=== PATIENT | female | born 1980 | race Caucasian/White ===

== ENCOUNTER 2022-10-11 08:06 | Outpatient (RCR) | payer BC, SELFPAY | END 2023-03-14 23:59 | disposition home or self-care (01) | PROVIDERS: Visit Provider Family Medicine | DX: H93.12 Tinnitus, left ear (principal); H93.299 Other abnormal auditory perceptions, unspecified ear; R68.89 Other general symptoms and signs; Z51.89 Encounter for other specified aftercare | CPT/HCPCS: 97166 ==

== ENCOUNTER 2023-11-13 08:06 | Day surgery (SDC) | payer BC, SELFPAY ==
[2023-11-13] VITALS (15 sets, daily range): BP systolic 101–125; BP diastolic 62–95; PULSE 54–86; RESP 13–20; TEMP 36.3–36.6; O2SAT 93–100; BMI 32.1
[2023-11-13] MEDS: LACTATED RINGERS 1000 ML 1,000 ML 100 ML IV (08:30)
[2023-11-13 08:44] LABS: Ur HCG Qualitative* Negative (Negative)
[2023-11-13] MEDS: SODIUM CHLORIDE 0.9 % (FLUSH) 10 ML SYRINGE IVF (09:16)
--- NOTE | 2023-11-13 09:18 | W.PM.H&PU ---
History & Physical Update History & Physical Update H&P Reviewed and patient assessed: No changes noted H&P Updates: She is still not sexually active and continue to strongly desire sterilization.
[2023-11-13] MEDS: BUPIVACAINE 0.25 %/EPI 1:200K 30 ml 8 ML INJECTION (11:10)
--- NOTE | 2023-11-13 11:10 | P.PCNOB_ITS ---
Procedure Pre-op/Post-op diagnoses: Pre-Op/Post-Op Diagnoses Operation Date: 11/13/23 09:45 <No data on this case meets the specified criteria> Procedure: Procedures Operation Date: 11/13/23 09:45 Actual Procedure Side Surgeon p Diagnostic Laparoscopic Bilateral Salpingectomy, Lysis of adhesions Bilateral Chiquita Emmanuel MD Findings: Pelvic exam: Mons normal, clitoris normal, urethral meatus normal. Labia minora and majora normal in appearance bilaterally. Perineum and anus normal appearance. Vaginal introitus normal appearance. On laparoscopy: Uterus with dense appearing adhesion of the the bladder flap to the previous hysterotomy scar, otherwise normal. Sigmoid colon and fimbriated end of fallopian tube adhered to left pelvic side wall. Appendix and liver all appeared normal. Narrative: Preoperative diagnosis: Anita is a 43-year-old who desires permanent sterilization. Postoperative diagnosis: Same. Procedure: Diagnostic laparoscopy, bilateral salpingectomy, lysis of adhesions Anesthesia: General endotracheal, Local Surgeon: Chiquita Emmanuel MD health care assistant: ELIEL Payton EBL: 10 mL Urine output: 400 mL clear urine IVF: 700 ml Procedure: Patient was taken to the operating room where general anesthetic was found to be adequate. She was placed in the dorsal lithotomy position and an exam under anesthesia was performed with findings stated above. She was then prepped and draped in a normal sterile manner. A Roblero catheter was then placed. A large sponge stick was placed into the vagina to be used as a manipulator was then placed. Attention was then turned to performing the laparoscopic portion of the procedure. All incisions were injected with 0.5% Marcaine prior to incision. A vertical 5 mm infraumbilical, incision, was made and a 5 mm trocar placed under direct visualization with the laparoscope. 5 mm camera was placed within the 5 mm Fios Kii trocar, and advanced under direct visualization through the anterior abdominal wall into the peritoneal cavity, while tenting up the anterior abdominal wall. The trocar was removed. The balloon was inflated, holding the port in place. Pneumoperitoneum was achieved. Survey of the abdomen and pelvis revealed the above-noted findings. Two additional port sites were created. The first was in the patient's left lower quadrant, just superomedial to the left ASIS. The second was a hand's breath superior to and slightly medial to the first. Each was infiltrated with small amount of Marcaine prior to incision. A 5 mm incision was made at each site, after assuring that large vessels were out of harm's way. A 5 mm Fios Kii port was inserted at each site, under direct visualization and without complication. The balloon on each of the 3 ports was inflated, holding each in place. The left fallopian tube was grasped with a sliding grasper. The left fallopian tube was removed from the broad ligament using the LigaSure dissecting forceps starting at the cornua end as the plan was more readily apparent. Sequential pedicles were then formed towards the fimbriated end. Lysis of adhesion performed to free up the fimbriated end of the tube. The majority of the fimbria was removed with small amount left behind as it was too adhered to the pelvic side wall. The tube was then removed from the abdomen through the left lower quadrant port. The right fallopian tube was removed started from the fimbriated end with sequential pedicles up to the level of the cornua where it was subsequently ligated. Excellent hemostasis was noted of all pedicles. The trocars were then removed under direct visualization. The CO2 gas was allowed to escape the infraumbilical port prior to its removal. All incisions were reapproximated using 4-0 Monocryl in a running subcuticular manner. Exofin applied over each incision site. The vaginal manipulator and Roblero catheter were removed. The patient tolerated this procedure well. Sponge, lap and instrument counts were correct x2 at the end of the procedure and the patient was taken to the recovery area in stable condition.
--- NOTE | 2023-11-13 11:25 | W.ANESCHARGE ---
Anesthesia Charges Start Date/Time Anesthesia Start Date: 11/13/23 Anesthesia Start Time: 10:15 Stop Date/Time Anesthesia Stop Date: 11/13/23 Anesthesia Stop Time: 11:27
[2023-11-13] MEDS: fentaNYL 100 MCG/2 ML inj 50 MCG IVP (11:51)
--- NOTE | 2023-11-13 12:11 | W.ANESCHARGE ---
Anesthesia Charges Start Date/Time Anesthesia Start Date: 11/13/23 Anesthesia Start Time: 10:15 Stop Date/Time Anesthesia Stop Date: 11/13/23 Anesthesia Stop Time: 11:27
== END 2023-11-13 13:25 | disposition home or self-care (01) ==
PROVIDERS: Visit Provider Obstetrics & Gynecology
PROC: (CPT 58661; principal; 2023-11-13 09:30)
DX: Z30.2 Encounter for sterilization (principal)
CPT/HCPCS: 58661; 00840; 36415; 81025; 85018; 86850; 86900; 86901; 88302; J0330; J1100; J1170; J1885; J2250; J2405; J2704; J2710; J3010; J7120

== ENCOUNTER 2024-10-31 11:44 | Emergency (ER) | payer BC, SELFPAY ==
--- OUTSIDE RECORDS SUMMARY | 2024-10-31 11:46 | XMS_ITS | Clinical Summary ---
Author Organization [facility] Address [address] [place] [id number] Care Team Providers Care Data Officer Name Role Phone Hawa Goff DO Primary Care Provider [phone] Allergies Active Allergy Reactions Criticality Noted Date Comments Hailey Vomiting 07/14/2021 projectile vomiting when age 11 Medications multivitamin (MVI) tablet Take 1 Tablet by mouth once daily. 0 1 Active durable medical equipment (DME)Indications :Plantar fasciitis of right foot,Gastrocnemi us equinus, unspecified laterality [phone] Plantar fasciitis Night Splint, Medium 1 Each 2 Active medication order composer YERBA MANTA tea daily 4 Active medication order composerIndicati ons:PTSD (post-traumatic stress disorder),Medica [place] use [place] medical cannabis 4 Active Active Problems Problem Noted Date Diagnosed Date Medical cannabis use 07/14/2021 Overview (05/15/2024): [id number] PTSD PTSD (post-traumatic stress disorder) 07/14/2021 Advanced maternal age in multigravida, second tr imester 10/27/2020 09/23/2020 Overview (02/20/2021): Component Latest Ref Rng & Units 02/13/2021 Vaginal/Rectal OB Strep B PCR Positive (A) Estimated Date of Delivery: 03/14/21 Patient's last menstrual period was 06/07/2020 (exact date). Last Tdap- 12/26/2020 Last Flu vaccine- 06/16/2017 Glucose (GTT) result- Component Latest Ref Rng & Units 11/28/2020 GLUCOSE,GESTATIONAL 65 - 139 mg/dL 126 Component Latest Ref Rng & Units 12/01/2020 THC METABOLITES,QUAL Not Detected Presumptive Positive-Unconfirmed Result (A) PCP,QUAL Not Detected Not Detected COCAINE,QUAL Not Detected Not Detected METHAMPHETAMINE, QUALITATIVE Not Detected Not Detected OPIATES,QUAL Not Detected Not Detected AMPHETAMINE, QUALITATIVE Not Detected Not Detected BENZODIAZEPINES,QUAL Not Detected Not Detected TRICYCLICS,QUAL Not Detected Not Detected METHADONE, QUALITATIVE Not Detected Not Detected BARBITURATES,QUAL Not Detected Not Detected OXYCODONE, QUALITATIVE Not Detected Not Detected BUPRENORPHINE, QUALITATIVE Not Detected Not Detected PROPOXYPHENE,QUAL Not Detected Not Detected HEMOGLOBIN 12.0 - 16.0 g/dL MCV 80 - 100 fL TREPONEMA PALLIDUM Negative Component Latest Ref Rng & Units 12/26/2020 THC METABOLITES,QUAL Not Detected PCP,QUAL Not Detected COCAINE,QUAL Not Detected METHAMPHETAMINE, QUALITATIVE Not Detected OPIATES,QUAL Not Detected AMPHETAMINE, QUALITATIVE Not Detected BENZODIAZEPINES,QUAL Not Detected TRICYCLICS,QUAL Not Detected METHADONE, QUALITATIVE Not Detected BARBITURATES,QUAL Not Detected OXYCODONE, QUALITATIVE Not Detected BUPRENORPHINE, QUALITATIVE Not Detected PROPOXYPHENE,QUAL Not Detected HEMOGLOBIN 12.0 - 16.0 g/dL 11.9 (L) MCV 80 - 100 fL 91 TREPONEMA PALLIDUM Negative Negative 20 week US: Intrauterine at 20w 2d. presentation is Breech. EFW 374 grams, percentile: 66. Growth parameters and estimated weight are appropriate for gestational age. No major structural anomalies identified. No markers for aneuploidy identified. The amniotic fluid volume appears normal. Placental location: Anterior There is no evidence of placenta previa The transabdominal cervical length is 4.3 cm. No Known Allergies OB History Para Term AB Living 3 0 0 0 2 0 SAB TAB Ectopic Multiple Live Births 0 2 0 0 0 # Outcome Date GA Lbr Eldon/2nd Weight Sex Delivery Anes PTL Lv 3 Current 2 TAB 1 TAB Create lab flowsheet for OB labs- Component Latest Ref Rng & Units 09/22/2020 09/22/2020 09/22/2020 1:30 PM 1:30 PM 1:30 PM ANTIBODY SCREEN Negative Negative SPECIMEN EXPIRATION DATE/TIME 09/25/20 23:59 HEMOGLOBIN 12.0 - 16.0 g/dL 13.4 MCV 80 - 100 fL 88 PLATELET COUNT 140 - 440 thou/cu mm 248 MPV 6.5 - 11.0 fL 10.8 RUBELLA IGG ANTIBODY Positive 6.95 HBSAG Nonreactive Nonreactive HEPATITIS C ANTIBODY Non-Reactive Non-Reactive HIV-1/HIV-2 ANTIBODY Non-Reactive Non-Reactive TREPONEMA PALLIDUM Negative Negative ABORH O Rh Positive Past Medical History: . Date Attention deficit disorder with hyperactivity(314.01) Dr Kaplan, [facility] Bipolar I disorder, most recent episode (or current) unspecified 06/21/2008 Dyspepsia and other specified disorders of function of stomach Migraine, unspecified, without mention of intractable migraine without mention of status migrainosus 06/21/2008 Poisoning by unspecified drug or medicinal substance(977.9) 10/2006 overuse Ritalin patches No past surgical history on file. No data on file. Problems (from 09/22/20 to present) No problems associated with this episode. Marisa Conti RN.....09/23/2020 9:16 AM Mood disorder 06/21/2008 Migraine, unspecified, witho ut mention of intractable migraine without mention of status migrainosus 06/21/2008 Other atopic dermatitis and related conditions 1 Overview (06/24/2007): eczema Attention deficit disorder with hyperactivity(31 4.01) Resolved Problems Problem Noted Date Diagnosed Date Resolved Date Other bipolar disorders 01/17/200707/26 Amphetamine and other psycho stimulant dependence, unspecified 01/17/2007 01/11/2021 Encounters Date Type Department Care Team Description 08/14/2024 10:10 AM CUSTOMER SERVICE COORDINATOR Office Visit [facility] [address] [place] [address] Hawa Goff, DO Form (Patient needing form completed for having a stool at work due to foot pain/plantar fascitis ) 08/13/2024 Travel 08/03/2024 Telephone [facility] [address] [place] [address] Shaqra, Hawa Josey, DO Form from Last 3 Months Immunizations Immunization Administration Dates Next Due COVID-19 vaccine ([employer]-Bio NTech 30mcg/0.3mL) 12YO+ STEPHEN-SUCROSE PF, MDV 10/09/2021 COVID-19 vaccine (Pfizer-BioNTech 30mcg/0.3mL) P F, MDV 04/10/2021,03/23/2021 Influenza, IIV3 (Age >=3 years) 06/25/2007 Influenza, IIV4 06/16/2017 MMR 11/25/1992 Td (Age >=7 Years) 12/27/2004 Tdap 12/26/2020 Family History * Patient is adopted Medical History Relation Name Comments Cancer Brother lymph nodes rem ayush due to cancer Genetic Other pt adopted; onl y knows above information Relation Name Status Comments Brother Other Social History Tobacco Use Types Packs/Day Years Used Date Smoking Tobacco: Former Cigarettes 0.5 11 0 01/24/1998 - 01/24/2009 Smokeless Tobacco: Never Tobacco Cessation:Counseling Given: Yes Comments:no exposure Alcohol Use Standard Drinks/Week Comments Not Currently 0 (1 standard drink = 0.6 oz pur e alcohol) PHQ-2 Answer Date Recorded PHQ-2 TOTAL SCORE 1 11/11/2023 Social Connections Answer Date Recorded Do you often feel lonely or isolated from those around you? 0 08/13/2024 Financial Resource Strain Answer Date R ecorded Difficulty of Paying Living Expenses 3 08/13/2024 Difficulty of Paying Living Expenses Not on file 08/13/2024 Food Insecurity Answer Date Recorded Do you worry your food will run out before you are able to buy more? 1 08/13/2024 Transportation Needs Answer Date Record ed Does lack of transportation keep you from medica l appointments? 2 08/13/2024 Does lack of transportation keep you from work, meetings or getting things that you need? 1 08/13/2024 Housing Stability Answer Date Recorded What is your housing situation today? 1 08/13/2024 Utilities Answer Date Recorded Do you have trouble paying f or utilities (for example, heat, electricity, water, phone)? 1 08/13/2024 Comments No Sex and Gender Information Value Date Recorded Sex Assigned at Not on file Legal Sex Female 6:59 AM CUSTOMER SERVICE COORDINATOR Gender Identity Not on file Sexual Orientation Not on file Obstetrics History Para Term AB IAB SAB Ectopic Multiple Livin g Live Births 4 0 2 2 0 Date Outcome GA Total Labor Labor/2nd/3rd Weight Sex Type Anes PTL Josey A1 A5 Name Clin IAB IAB Last Filed Vital Signs Vital Sign Reading Time Taken Comments Blood Pressure 119/78 08/14/2024 9:41 AM CUSTOMER SERVICE COORDINATOR Pulse 82 08/14/2024 9:41 AM CUSTOMER SERVICE COORDINATOR Temperature 37.1 C (98.7 F) 03/06/2021 10:30 AM CDT Respiratory Rate 20 07/18/2022 2:36 PM CUSTOMER SERVICE COORDINATOR Oxygen Saturation 97% 08/14/2024 9:41 AM CUSTOMER SERVICE COORDINATOR Inhaled Oxygen Concentration - - Weight 91.4 kg (201 lb 8 oz) 08/14/2024 9:41 AM CUSTOMER SERVICE COORDINATOR Height 171.8 cm (5' 7.62) 07/18/2022 2:36 PM CS T Body Mass Index 30.99 07/18/2022 2:36 PM CUSTOMER SERVICE COORDINATOR Plan of Treatment Health Maintenance Due Date Last Done Comments BMI (ht and wt on same day) for age 18+ 07/18/2023 07/18/2022, 02/13/2021, 01/11/2021, Additional history exists Colonoscopy through age 75 02/04/2024 Lipids for age 45-75 02/04/2024 Mammogram for age 45-75 02/04/2024 (IA) Influenza for age 9-49 04/26/2024 06/16/2017, 1 COVID-19 vaccine series ( season) 2024 10/09/2021, 04/10/2021, 03/23/2021 Depression screening for age 12+ 11/10/2024 11/11/2023, 09/24/2022, 12/15/2020, Additional history exists Pap test for age 21-65 09/22/2025 , 09/22/2020, 06/24/2007 Tetanus booster 12/26/2030 12/26/2020, 12/27/2004 HIV for age 15-65 Completed 09/22/2020, 06/24/2007 Hepatitis C screening for age 18-79 Completed 09/22/2020, 06/24/2007, 10/12/2003, Additional history exists Tdap Completed 12/26/2020 Pneumococcal series for age 6-49 Aged Out No longer eligible based on patient's age to complete this topic Procedures Procedure Name Priority Date/Time Associated Diagnosis Comments ANTI HIV 1/2 Routine 09/22/2020 1:30 PM CUSTOMER SERVICE COORDINATOR 15 weeks gestation of ANTI HCV Routine 09/22/2020 1:30 PM CUSTOMER SERVICE COORDINATOR 15 weeks gestation of CONTACT CENTER CONSULTANT THIN PREP PAP SCREEN IMAGED Routine 09/22/2020 12:33 PM CUSTOMER SERVICE COORDINATOR Cervical cancer screening from Last 3 Months or Most Recently Relevant to Health Maintenance Results * ANTI HCV (09/22/2020 1:30 PM CUSTOMER SERVICE COORDINATOR) Pathologist [facility] HEPATITIS C ANTIBODY Non-React glen Non-React glen 09/22/2020 9:24 PM CUSTOMER SERVICE COORDINATOR [facility] Comment:Antibodies to HCV no t detected; does not exclude the possibility of exposure to HCV. Blood BLOOD SPECIMEN / Unknown Venipuncture / Unknown 09/22/2020 1:30 PM CUSTOMER SERVICE COORDINATOR 09/22/2020 1:30 PM CUSTOMER SERVICE COORDINATOR [employer] [place] DO SEND OUTS Final [facility] [address] [place] [address], * ANTI HIV 1/2 (09/22/2020 1:30 PM CUSTOMER SERVICE COORDINATOR) Pathologist [facility] HIV-1/HIV-2 ANTIBODY Non-Reacti ve Non-Reacti ve 09/22/2020 9:19 PM CUSTOMER SERVICE COORDINATOR [facility] [employer] [facility] Comment:HIV-1 p24 and HIV-1/ HIV-2 Ab not detected. Blood BLOOD SPECIMEN / Unknown Venipuncture / Unknown 09/22/2020 1:30 PM CUSTOMER SERVICE COORDINATOR 09/22/2020 1:30 PM CUSTOMER SERVICE COORDINATOR [employer] DO SEND OUTS Final Result [facility] [address] [place] [address], [place] * CONTACT CENTER CONSULTANT THIN PREP PAP SCREEN IMAGED (09/22/2020 12:33 PM CUSTOMER SERVICE COORDINATOR) Case Report Gynecologic Cytology Report Case: [id number] Authorizing Provider: Hawa Goff DO Collected: 09/22/2020 1233 Ordering Location: [facility] Received: 09/22/2020 1244 Clinic First Screen: Sarah Rodriguez Specimen: CONTACT CENTER CONSULTANT ThinPrep Vial Screening, Cervical 09/30/2020 1:48 PM CUSTOMER SERVICE COORDINATOR [facility] INTERPRETATION/ RESULT NEGATIVE FOR INTRAEPITHELIAL LESION OR MALIGNANCY (NIL) (none) 09/30/2020 1:48 PM CUSTOMER SERVICE COORDINATOR [facility] IMEN ADEQUACY Satisfactory for evaluation Endocervical component present 09/30/2020 1:48 PM CUSTOMER SERVICE COORDINATOR [facility] [employer] [facility] ENTRAL LABORAT[facility] HPV REQUEST HPV if ASCUS 09/30/2020 1:48 PM CUSTOMER SERVICE COORDINATOR [facility] [employer] LABORATORYC ENTRAL LABORATORY Date of LMP 06/07/2020 09/30/2020 1:48 PM CUSTOMER SERVICE COORDINATOR [facility] [employer] [facility] Last Pap Date Unknown 09/30/2020 1:48 PM CUSTOMER SERVICE COORDINATOR [facility] Last Pap Result First Pap/Unknown 1:48 PM CUSTOMER SERVICE COORDINATOR [facility] [employer] [facility] Abnormal Pap or [place] Bx in last 5 years No 09/30/2020 1:48 PM CUSTOMER SERVICE COORDINATOR [facility] [employer] [facility] ENTRAL LAB[facility]AT[facility] Menstrual Status 09/30/2020 1:48 PM CUSTOMER SERVICE COORDINATOR [facility] [employer] [facility] ENTRAL LABORATORY [place] Bx Done Today No 09/30/2020 1:48 PM CUSTOMER SERVICE COORDINATOR [facility] [employer] [facility] Additional Information None given 09/30/2020 1:48 PM CUSTOMER SERVICE COORDINATOR [facility] [employer] [facility]AL [facility] Comment: Cytology is screened at [facility] Central Laboratory - [address], [place] [address] and [facility] - [address], [place] [address] and [facility] Laboratory - [address] [place] [address] Interpreted at [facility], Central Laboratory - [address], [place] [address] Automated Review Successful 09/30/2020 1:48 PM CUSTOMER SERVICE COORDINATOR [facility] LABORATORY-C ENTRAL LABORATORY Comment:Specimen processed s uccessfully by automated rib stiffener and heel dipper device, [employer] System, [employer] Note The pap test is a screening technique, not a diagnostic procedure. It is used primarily to screen for squamous cancers and precursor lesions. Published studies have shown that it is subject to both false negative and false positive results. The pap test should not be used as the sole means to diagnose or exclude pre-malignant and malignant lesions. 09/30/2020 1:48 PM CUSTOMER SERVICE COORDINATOR [facility] LABORATORY-C ENTRAL LABORATORY Other (Cervical) Non-Blood / Unknown 09/22/2020 12:33 PM CUSTOMER SERVICE COORDINATOR 09/22/2020 12:44 PM CUSTOMER SERVICE COORDINATOR us Hawa Goff DO PATHOLOGY/CYTOLOGY Final Resu lt [facility] [address] [place] [address], [place] from Last 3 Months or Most Recently Relevant to Health Maintenance Insurance [facility] Care Teams Data Officer Relationship Specialty Start Date End Date Hawa Goff DO [address] [place] [phone] PCP - General Family Practice 03/15/21
[2024-10-31 11:57] VITALS: BP 142/87; PULSE 77; RESP 18; TEMP 37; O2SAT 97; BMI 30.9
--- NOTE | 2024-10-31 12:47 | ED_ITS ---
HPI - General Adult General Chief complaint: Dental/Oral/Mouth Injury/Pain Stated complaint: Toothache Time Seen by Provider: 10/31/24 12:47 History of Present Illness HPI narrative: Patient reports bilateral dental bridges. Just had temporary bridge placed on left side and was told to not chew on left side. Since then she has severe pain to her right jaw because of needed to jaw on this side. Did take Children's ibuprofen and aspirin prior to arrival as this was only medication available. 44-year-old woman with some recent dental work. She has had that temporary bridge placed and then worsening jaw pain on the opposing side as she chews there. Has not had a fever or drainage. Is in need also of a root canal? She has been using propolis for pain relief but it has not been enough nor children's ibuprofen and aspirin. Only had children's ibuprofen available. Related Data Home Medications ?Medication ?Instructions ?Recorded ?Confirmed multivitamin 1 tab PO QAM 09/26/23 11/28/23 Previous Rx's ?Medication ?Instructions ?Recorded hydroxyzine HCl 10 mg tablet 10 mg PO QHS 30 days #30 tabs 11/13/23 hydroxyzine HCl 25 mg tablet 25 - 50 mg (1 - 2 x 25 mg) PO TID 10/31/24 PRN #30 tabs ibuprofen 400 mg tablet 400 - 800 mg (1 - 2 x 400 mg) PO 10/31/24 Q6H PRN #30 tabs penicillin V potassium 500 mg 500 mg PO TID 8 days #24 tabs 10/31/24 tablet Allergies Allergy/AdvReac Type Severity Reaction Status Date / Time lithium Allergy Unknown Unknown Verified 11/28/23 10:04 Review of Systems Status of ROS: Reports: 6 or more systems reviewed and unremarkable except as noted in History and below [facility] Medical History Learning difficulty due to cognitive limitations ?F81.9 - Developmental disorder of scholastic skills, unspecified (ICD-10) Generalized anxiety disorder ?F41.1 - Generalized anxiety disorder (ICD-10) Amphetamine and psychostimulant dependence (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) ?F15.20 - Other stimulant dependence, uncomplicated (ICD-10) Intrapartum hemorrhage (03/10/21) ?O67.9 - Intrapartum hemorrhage, unspecified (ICD-10) History of blood transfusion (03/10/21) ?Z92.89 - Personal history of other medical treatment (ICD-10) Surgical History Status post primary low transverse section (03/10/21) ?Z98.891 - History of uterine scar from previous surgery (ICD-10) Social History Smoking Status: Never smoker Do you use any of these nicotine containing products: None How often do you have a drink containing alcohol: never How often do you have six or more drinks on one occasion: Never AUDIT-C Alcohol total score: 0 Non-prescribed substance use: denies use Caffeine: No Exam Narrative: Exam Narrative: Pleasant. NAD but seems uncomfortable. Skin is warm and dry. I do not see swelling externally maybe a little bit on the right lower jaw. No pain to palpation of the TMJ. Ear canals and TMs are clear. Has a sensory relieving device at the left external ear canal that was removed. Neck is supple without lymphadenopathy. Oropharyngeal exam with propolis packed against the lower anterior lateral buccal side dentition. I do not see significant swelling in the area. Dental work otherwise is observed in the mouth as described. Const: Vital Signs, click to edit/add: Vital Signs - 24 hr 10/31/24 11:57 Temperature 98.6 F Pulse Rate [Pulse Oximeter] 77 Respiratory Rate 18 Blood Pressure [Ri ght Upper Arm] 142/87 H Pulse Oximetry 97 Oxygen Delivery Me thod Room Air Documenting provider has reviewed patient's vital signs: yes Course Vital Signs Vital signs: Initial Vital Signs Temperature 98.6 F 10/31/24 11:57 Temperature Source Temporal Artery Scan 10/31/24 11:57 Pulse Rate 77 10/31/24 11:57 Respiratory Rate 18 10/31/24 11:57 Blood Pressure 142/87 H 10/31/24 11:57 Blood Pressure Mean 105 10/31/24 11:57 Pulse Oximetry 97 10/31/24 11:57 Oxygen Delivery Method Room Air 10/31/24 11:57 Vital Signs Temperature 98.6 F 10/31/24 11:57 Pulse Rate 77 10/31/24 11:57 Respiratory Rate 18 10/31/24 11:57 Blood Pressure 142/87 H 10/31/24 11:57 Pulse Oximetry 97 10/31/24 11:57 Oxygen Delivery Method Room Air 10/31/24 11:57 Temperature 98.6 F 10/31/24 11:57 Pulse Rate 66 10/31/24 13:31 Respiratory Rate 16 10/31/24 13:31 Blood Pressure 134/86 10/31/24 13:31 Pulse Oximetry 97 10/31/24 11:57 Oxygen Delivery Method Room Air 10/31/24 11:57 Medical Decision Making MDM Narrative Medical decision making narrative: Pain may be secondary to need for root canal or recent manipulation of dentition. Prudent I suppose to cover with antibiotic per her concern. Does not appear to be TMJ stress. Probably pushed it from a chewing standpoint. Historically hydroxyzine has been helpful for pain/anxiety for her. See patient discharge plan for further discussion Would 1st recommend eating soft foods or smoothies as chewing seems to be a primary problem. Stay well-hydrated. Prescribing stronger ibuprofen for you. Also a course of penicillin and hydroxyzine as you mentioned. Can take up to 800 mg of ibuprofen or up to 1000 mg of acetaminophen per dose. Alternative to the ibuprofen might be up to 500 mg of naproxen 2 times daily. You can combine ibuprofen with acetaminophen or naproxen with acetaminophen. Any of these medications can be combined with hydroxyzine as well. Please follow-up with your dental clinic/dentist as planned. Medical Records Medical records reviewed: Yes I reviewed the patient's medical records Discharge Plan Discharge Clinical Impression: Pain, dental Patient Disposition: Home, Self-Care Condition: Stable Additional Instructions: Would 1st recommend eating soft foods or smoothies as chewing seems to be a primary problem. Stay well-hydrated. Prescribing stronger ibuprofen for you. Also a course of penicillin and hydroxyzine as you mentioned. Can take up to 800 mg of ibuprofen or up to 1000 mg of acetaminophen per dose. Alternative to the ibuprofen might be up to 500 mg of naproxen 2 times daily. You can combine ibuprofen with acetaminophen or naproxen with acetaminophen. Any of these medications can be combined with hydroxyzine as well. Please follow-up with your dental clinic/dentist as planned. Prescriptions: New hydroxyzine HCl 25 mg tablet 25 - 50 mg PO TID PRNQty: 30 0RF penicillin V potassium 500 mg tablet 500 mg PO TID 8 Days Qty: 24 0RF ibuprofen 400 mg tablet 400 - 800 mg PO Q6H PRNQty: 30 0RF No Action multivitamin Tablet 1 tab PO QAM hydroxyzine HCl 10 mg tablet 10 mg PO QHS 30 Days Qty: 30 0RF Follow Up/Referrals: Provider,Not a Local [Non-Staff] - Stand Alone [facility] Inst[facility]
--- OUTSIDE RECORDS SUMMARY | 2024-10-31 13:15 | XMS_ITS | Clinical Summary ---
Author Organization [employer] [facility] [facility] Address [address] [place] [id number] Care Team Providers Care Industrial Health And Safety Professor Name Role Phone Hawa Goff DO Primary Care Provider [phone] Allergies Active Allergy Reactions Criticality Noted Date Comments [place] Vomiting 07/14/2021 projectile vomiting when age 11 Medications multivitamin (MVI) tablet Take 1 Tablet by mouth once daily. 0 1 Active durable medical equipment (DME)Indications :Plantar fasciitis of right foot,Gastrocnemi us equinus, unspecified laterality [phone] Plantar fasciitis Night Splint, Medium 1 Each 2 Active medication order composer YERBA MANTA tea daily 4 Active medication order composerIndicati ons:PTSD (post-traumatic stress disorder),Medica [place] cannabis use [place] medical cannabis 4 Active Active Problems Problem Noted Date Diagnosed Date Medical cannabis use 07/14/2021 Overview (05/15/2024): [id number] PTSD PTSD (post-traumatic stress disorder) 07/14/2021 Advanced [...] Attention deficit disorder with hyperactivity(314.01) Dr Kaplan, [facility] Bipolar I disorder, most recent episode (or [...] Department Care Team Description 08/14/2024 10:10 AM ORIENTATION AND MOBILITY SPECIALIST Office Visit [facility] [address] [place] [address] Hawa Goff, DO Form (Patient needing form completed for having a stool at work due to foot pain/plantar fascitis ) 08/13/2024 Travel 08/03/2024 Telephone [facility] [address] [place] [address] Shaqra, Hawa Josey, DO Form from Last 3 Months Immunizations Immunization Administration Dates Next Due COVID-19 vaccine (Labtrip-Bio NTech 30mcg/0.3mL) 12YO+ STEPHEN-SUCROSE PF, MDV 10/09/2021 [...] on file Legal Sex Female 6:59 AM ORIENTATION AND MOBILITY SPECIALIST Gender Identity Not on file Sexual Orientation Not on file Obstetrics History Para Term AB IAB SAB Ectopic Multiple Livin g Live Births 4 0 2 2 0 Date Outcome GA Total Labor Labor/2nd/3rd Weight Sex Type Anes PTL Josey A1 A5 Name Clin IAB IAB Last Filed Vital Signs Vital Sign Reading Time Taken Comments Blood Pressure 119/78 08/14/2024 9:41 AM ORIENTATION AND MOBILITY SPECIALIST Pulse 82 08/14/2024 9:41 AM ORIENTATION AND MOBILITY SPECIALIST Temperature 37.1 C (98.7 F) 03/06/2021 10:30 AM CDT Respiratory Rate 20 07/18/2022 2:36 PM ORIENTATION AND MOBILITY SPECIALIST Oxygen Saturation 97% 08/14/2024 9:41 AM ORIENTATION AND MOBILITY SPECIALIST Inhaled Oxygen Concentration - - Weight 91.4 kg (201 lb 8 oz) 08/14/2024 9:41 AM ORIENTATION AND MOBILITY SPECIALIST Height 171.8 cm (5' 7.62) 07/18/2022 2:36 PM CS T Body Mass Index 30.99 07/18/2022 2:36 PM ORIENTATION AND MOBILITY SPECIALIST Plan of Treatment Health Maintenance Due Date [...] ANTI HIV 1/2 Routine 09/22/2020 1:30 PM ORIENTATION AND MOBILITY SPECIALIST 15 weeks gestation of ANTI HCV Routine 09/22/2020 1:30 PM ORIENTATION AND MOBILITY SPECIALIST 15 weeks gestation of WAREHOUSER THIN PREP PAP SCREEN IMAGED Routine 09/22/2020 12:33 PM ORIENTATION AND MOBILITY SPECIALIST Cervical cancer screening from Last 3 Months or Most Recently Relevant to Health Maintenance Results * ANTI HCV (09/22/2020 1:30 PM ORIENTATION AND MOBILITY SPECIALIST) Pathologist [facility] HEPATITIS C ANTIBODY Non-React glen Non-React glen 09/22/2020 9:24 PM ORIENTATION AND MOBILITY SPECIALIST [facility] Comment:Antibodies to HCV no t detected; does not exclude the possibility of exposure to HCV. Blood BLOOD SPECIMEN / Unknown Venipuncture / Unknown 09/22/2020 1:30 PM ORIENTATION AND MOBILITY SPECIALIST 09/22/2020 1:30 PM ORIENTATION AND MOBILITY SPECIALIST [employer] [place] DO SEND OUTS Final Result [facility] [address] [place] [address], * ANTI HIV 1/2 (09/22/2020 1:30 PM ORIENTATION AND MOBILITY SPECIALIST) Pathologist [facility] HIV-1/HIV-2 ANTIBODY Non-Reacti ve Non-Reacti ve 09/22/2020 9:19 PM ORIENTATION AND MOBILITY SPECIALIST [facility] Comment:HIV-1 p24 and HIV-1/ HIV-2 Ab not detected. Blood BLOOD SPECIMEN / Unknown Venipuncture / Unknown 09/22/2020 1:30 PM ORIENTATION AND MOBILITY SPECIALIST 09/22/2020 1:30 PM ORIENTATION AND MOBILITY SPECIALIST [employer] DO SEND OUTS Final Result [facility] [address] [place] [address], [place] * WAREHOUSER THIN PREP PAP SCREEN IMAGED (09/22/2020 12:33 PM ORIENTATION AND MOBILITY SPECIALIST) Case Report Gynecologic Cytology Report Case: [id number] Authorizing Provider: Hawa Goff DO Collected: 09/22/2020 1233 Ordering Location: [facility] Received: 09/22/2020 1244 Clinic First Screen: Sarah Rodriguez Specimen: WAREHOUSER ThinPrep Vial Screening, Cervical 09/30/2020 1:48 PM ORIENTATION AND MOBILITY SPECIALIST [facility] INTERPRETATION/ RESULT NEGATIVE FOR INTRAEPITHELIAL LESION OR MALIGNANCY (NIL) (none) 09/30/2020 1:48 PM ORIENTATION AND MOBILITY SPECIALIST [facility] EN[facility] IMEN ADEQUACY Satisfactory for evaluation Endocervical component present 09/30/2020 1:48 PM ORIENTATION AND MOBILITY SPECIALIST [facility] [employer] [facility] EN[facility] HPV REQUEST HPV if ASCUS 09/30/2020 1:48 PM ORIENTATION AND MOBILITY SPECIALIST [facility] [employer] [facility] Date of LMP 06/07/2020 09/30/2020 1:48 PM ORIENTATION AND MOBILITY SPECIALIST [facility] [employer] [facility] Last Pap Date Unknown 09/30/2020 1:48 PM ORIENTATION AND MOBILITY SPECIALIST [facility]- ENTRAL LAB[facility] Last Pap Result First Pap/Unknown 1:48 PM ORIENTATION AND MOBILITY SPECIALIST [facility] [employer] [facility] EN[facility] Abnormal Pap or Elmer Bx in last 5 years No 09/30/2020 1:48 PM ORIENTATION AND MOBILITY SPECIALIST [facility] [employer] [facility] Menstrual Status 09/30/2020 1:48 PM ORIENTATION AND MOBILITY SPECIALIST [facility] [employer] [facility] EN[facility] Elmer Bx Done Today No 09/30/2020 1:48 PM ORIENTATION AND MOBILITY SPECIALIST [facility] [employer] [facility] EN[facility] Additional Information None given 09/30/2020 1:48 PM ORIENTATION AND MOBILITY SPECIALIST [facility] [employer] [facility] EN[facility] Comment: Cytology is screened at [facility] [employer] [facility] Central Laboratory - [address], [place] [address] and [facility] - [address], [place] [address] and [facility] - [address] [place] [address] Interpreted at [facility], Central Laboratory - [address], [place] [address] Automated Review Successful 09/30/2020 1:48 PM ORIENTATION AND MOBILITY SPECIALIST [facility] LABORATORY-C ENTRAL LABORATORY Comment:Specimen processed s uccessfully by automated transmission engineer device, [employer], [employer] Note The pap test is a screening technique, not a diagnostic procedure. It is used primarily to screen for squamous cancers and precursor lesions. Published studies have shown that it is subject to both false negative and false positive results. The pap test should not be used as the sole means to diagnose or exclude pre-malignant and malignant lesions. 09/30/2020 1:48 PM ORIENTATION AND MOBILITY SPECIALIST [facility] LABORATORY-C ENTRAL LABORATORY Other (Cervical) Non-Blood / Unknown 09/22/2020 12:33 PM ORIENTATION AND MOBILITY SPECIALIST 09/22/2020 12:44 PM ORIENTATION AND MOBILITY SPECIALIST us Hawa Goff DO PATHOLOGY/CYTOLOGY Final Resu lt [facility] [address] [place] [address], [place] from Last 3 Months or Most Recently Relevant to Health Maintenance Insurance [facility] Care Teams Industrial Health And Safety Professor Relationship Specialty Start Date End Date Hawa Goff DO [address] [place] [id number] PCP - General Family Practice 03/15/21
[2024-10-31 13:31] VITALS: BP 134/86; PULSE 66; RESP 16
== END 2024-10-31 13:35 | disposition home or self-care (01) ==
PROVIDERS: Emergency Provider Family Medicine; PCP Family Medicine
DX: K08.89 Other specified disorders of teeth and supporting structures (principal)
CPT/HCPCS: 99283

== ENCOUNTER 2024-11-09 10:14 | Emergency (ER) | payer BC, SELFPAY ==
[2024-11-09 10:17] VITALS: BP 134/84; PULSE 82; RESP 18; TEMP 36.9; O2SAT 97; BMI 30.8
--- NOTE | 2024-11-09 10:32 | ED_ITS ---
HPI - General Adult General Time Seen by Provider: 10:32 Date Seen: 11/09/24 Chief complaint: Anxiety Stated complaint: Compound Trauma, anxiety Time Seen by Provider: 11/09/24 10:32 Source: patient, RN notes reviewed and old records reviewed Mode of arrival: ambulatory Limitations: no limitations History of Present Illness HPI narrative: Anita is a very pleasant 44-year-old female with a past history of anxiety, learning difficulty, ADHD treated with THC lozenges who was sent from Urgent Care to the emergency room for treatment of anxiety. Patient states that she has traumatic anxiety and that she has a particularly tough anniversary coming up. Anita notes that she has not been able to use her THC lozenges for a week as she had a recent root canal and procedure and has a traumatic date approaching. Notes the anxiety has been worsening. She notes that she has been using her water pipe with THC. She states that November 24 and are very traumatic dates for her. She notes that she lost her dog on November 24 and her biological mom's birthday is November 25. Because of this she planned on taking off work at the end of October and beginning of November. She knew she needed to have a stress free time. . She finds out that she is supposed to have jury duty on November 30. She tried to call last week in order to see her doctor today but was told that she was unable to get an appointment until November 18. She sees Dr. Liu at the [facility]. Patient is scheduled to see the dentist tomorrow. He is here with her father who is very loving and supportive. Related Data Home Medications ?Medication ?Instructions ?Recorded ?Confirmed multivitamin 1 tab PO QAM 09/26/23 11/09/24 yerba mate 11/09/24 Previous Rx's ?Medication ?Instructions ?Recorded hydroxyzine HCl 10 mg tablet 10 mg PO QHS 30 days #30 tabs 11/13/23 hydroxyzine HCl 25 mg tablet 25 - 50 mg (1 - 2 x 25 mg) PO TID 10/31/24 PRN #30 tabs ibuprofen 400 mg tablet 400 - 800 mg (1 - 2 x 400 mg) PO 10/31/24 Q6H PRN #30 tabs hydroxyzine HCl 50 mg tablet 50 mg PO QHS PRN #2 tabs 11/09/24 Allergies Allergy/AdvReac Type Severity Reaction Status Date / Time lithium Allergy Unknown Unknown Verified 11/09/24 10:29 Review of Systems Narrative: Denies alcohol use, drug use other than THC and does not smoke. 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) ?F15.20 - Other stimulant dependence, uncomplicated (ICD-10) Intrapartum hemorrhage (03/10/21) ?O67.9 - Intrapartum hemorrhage, unspecified (ICD-10) History of blood transfusion (03/10/21) ?Z92.89 - Personal history of other medical treatment (ICD-10) Surgical History Status post primary low transverse section (03/10/21) ?Z98.891 - History of uterine scar from previous surgery (ICD-10) Social History Smoking Status: Never smoker Do you use any of these nicotine containing products: None How often do you have a drink containing alcohol: never How often do you have six or more drinks on one occasion: Never AUDIT-C Alcohol total score: 0 Non-prescribed substance use: denies use Caffeine: No service: No Exam Narrative: Exam Narrative: Anita is alert and oriented. Throughout the conversation she becomes more animated and interactive. EOM is full pupils equal round reactive. Head is atraumatic. Left TM partially obscured by cerumen but no erythema. Right TM within normal limits. Oral cavity with moist mucous membranes. No erythema exudate in posterior oropharynx. Neck is supple without lymphadenopathy. Heart with regular rate and rhythm. Lungs are clear in all lung sandhu. Moving all extremities. Const: Vital Signs, click to edit/add: Vital Signs - 24 hr 11/09/24 10:17 Temperature 98.4 F Pulse Rate [Pulse Oximeter] 82 Respiratory Rate 18 Blood Pressure [Ri ght Upper Arm] 134/84 Pulse Oximetry 97 Oxygen Delivery Me thod Room Air Documenting provider has reviewed patient's vital signs: yes Course Course ED Course: Patient has had success with using hydroxyzine to manage anxiety in the past according to her records. Have offered her IM injection and she agrees to this. Will also do our best to see if we can move up her appointment at the [facility] for a recheck. She may need to be started on an antidepressant. Reevaluation(s) Reevaluation #1: I do return to the room and patient has received her injection and states she is feeling better. Will discharge her home at this point. We did discuss no driving on this medication. 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 I recommend that if she is sleepy that she walk and not ride her bike. She agrees. Vital Signs Vital signs: Initial Vital Signs Respiratory Effort Normal, Spontaneous, Non-Labored 11/09/24 10:16 Respiratory Depth Normal 11/09/24 10:16 Vital Signs Temperature 98.4 F 11/09/24 10:17 Pulse Rate 82 11/09/24 10:17 Respiratory Rate 18 11/09/24 10:17 Blood Pressure 134/84 11/09/24 10:17 Pulse Oximetry 97 11/09/24 10:17 Oxygen Delivery Method Room Air 11/09/24 10:17 Temperature 98.4 F 11/09/24 10:17 Pulse Rate 82 11/09/24 10:17 Respiratory Rate 18 11/09/24 10:17 Blood Pressure 134/84 11/09/24 10:17 Pulse Oximetry 97 11/09/24 10:17 Oxygen Delivery Method Room Air 11/09/24 10:17 Medications Administered Medications: Discontinued Medications Generic Name Dose Route Start Last Admin Trade Name Freq PRN Reason Stop Dose Admin Hydroxyzine HCl 50 mg 11/09/24 10:49 11/09/24 11:04 Hydroxyzine Hcl 50 Mg/Ml Inj IM 11/09/24 10:50 50 mg ONCE ONE Administration Medical Decision Making MDM Narrative Medical decision making narrative: 1. Anxiety-acute on chronic. Patient has had some medical issues with a root canal lately, has not been able to use her THC lozenge, and has approaching dates that are very upsetting for her. Now she has been called for jury duty. Patient is feeling better after hydroxyzine 50 mg IM in the ED. Will discharge her home. Head suggested that she may put a THC lozenge a little bit a water and slowly sip the water if needed. I have provided her with 2 additional tablets of hydroxyzine 50 mg 1 to use before bedtime tonight and 1 tomorrow morning if needed. 2. Disposition-home at this time. Return to the emergency room as needed. Recommend vitamin-D and magnesium check at her next visit with her primary which has been scheduled for tomorrow. Medical Records Medical records reviewed: Yes I reviewed the patient's medical records Discharge Plan Discharge Clinical Impression: Anxiety Patient Disposition: Home w/ Parent or Adult Condition: Improved Additional Instructions: Follow up appointment is scheduled at the [facility] on 11/10 at 3:25pm. Please check in at 3:20pm. If you have any questions, please call [phone]. I have sent 2 tablets of hydroxyzine for you to use 1 before bedtime tonight only if needed. A 2nd tablet can be used if you needed tomorrow morning. Return to the emergency room as needed. Prescriptions: New hydroxyzine HCl 50 mg tablet 50 mg PO QHS PRNQty: 2 0RF Rx Instructions: May take 1 tablet tonight as needed. May take 1 tablet tomorrow morning as needed. No Action multivitamin Tablet 1 tab PO QAM hydroxyzine HCl 10 mg tablet 10 mg PO QHS 30 Days Qty: 30 0RF hydroxyzine HCl 25 mg tablet 25 - 50 mg PO TID PRNQty: 30 0RF ibuprofen 400 mg tablet 400 - 800 mg PO Q6H PRNQty: 30 0RF yerba mate Patient Comments: tea daily helps patient to stay balanced Follow Up/Referrals: Hawa Goff DO [Primary Care Provider] - Stand Alone Forms: [employer] Info Instructions
== END 2024-11-09 11:34 | disposition home or self-care (01) ==
PROVIDERS: Emergency Provider Family Medicine; PCP Family Medicine
DX: F41.9 Anxiety disorder, unspecified (principal)
CPT/HCPCS: 96372; 99283; 99284; J3410